=== PATIENT | female | born 1965 | race Caucasian/White ===

== ENCOUNTER 2017-07-08 16:21 | Observation (INO) ==
[2017-07-08] MEDS ORDERED: Ondansetron 4 MG/2 ML VIAL IVP ONE ×2 (16:39→18:06)
[2017-07-08] MEDS ORDERED: Ketorolac 30 MG/ML VIAL IVP ONE (16:39)
[2017-07-08] MEDS ORDERED: 0.9 % Sodium Chloride 1,000 ML IVC ONE (16:39)
[2017-07-08] MEDS ORDERED: Pantoprazole 40 MG VIAL IVP ONE (16:39)
--- NOTE | 2017-07-08 16:45 | Emergency Department Note ---
Disposition Clinical Impression: Nephrolithiasis, Hydroureter, Renal colic, Pyelonephritis Hydronephrosis Qualifiers: Hydronephrosis type: unspecified Qualified Code(s): N13.30 - Unspecified hydronephrosis UTI (urinary tract infection) Qualifiers: Urinary tract infection type: site unspecified Hematuria presence: with hematuria Qualified Code(s): N39.0 - Urinary tract infection, site not specified ; R31.9 - Hematuria, unspecified; R31.9 - Hematuria, unspecified Disposition: Admitted As Inpatient Condition: Good Time of Disposition: 19:50 Abdominal Pain HPI - General Chief Complaint: ED Abdominal Pain Stated Complaint: ABD Pain. Time Seen by Provider: 07/08/17 16:26 Source: patient, family Nursing Notes Reviewed: Yes Vital Signs Reviewed: Yes - History of Present Illness HPI Narrative: Mrs. Reese, a 52yo female, presents from home for evaluation of right flank pain. Onset this morning and awoke her from sleep. Described as sharp, stabbing, constant. She motions to her right subcostal area containing down her right flank. She has associated nausea with vomiting. No fevers or chills. Patient also notes that she has foul-smelling urine. Patient does have a history of kidney stones. Patient also has a history of biliary colic. She is unable to clarify if this feels like a kidney stone or biliary colic. PMH: Hypertension tension, obesity PSH: Partial bowel resection secondary to diverticulitis, hysterectomy, bilateral oophrectomy, surgical removal of renal calculi. She still has her appendix and gallbladder. ROS: Positive: As above Negative: Fever, chills, chest pain, palpitations, dyspnea, diaphoresis, and usual back pain, hematuria, changes in bowel habits Pain Scale: 9 - Related Data Allergies Allergy/AdvReac Type Severity Reaction Status Date / Time No Known Allergies Allergy Verified 07/08/17 19:38 All systems ED: reviewed and negative except as stated. Review of Systems: As Per HPI Abdominal Pain PMH - Past Medical History Medical history: Reports: kidney stones Female Surgical History: Reports: hysterectomy, other Psychiatric history: Reports: no psych history - Social History Smoking status: Never smoker Alcohol use: Reports: rarely Drug use: Reports: none Physical Exam Vital Signs Reviewed General: Patient is alert, oriented, and in acute distress-she is a bucket bedside with scant emesis, grimace on her face, and is holding her right side. She prefers to sit upright. Head: atraumatic, normocephalic Eye: normal appearance, PERRL, EOMI, no scleral icterus, no conjunctival injection ENT: mucous membranes moist, normal external ear exam Neck: normal inspection, trachea midline, full ROM Chest: normal inspection, symmetric chest rise Respiratory: Good respiratory effort. Bilateral breath sounds are clear without wheezing, crackles, or rhonchi. Cardiovastular: Regular rate and rhythm. No clicks, rubs, gallops, or murmors. Normal heart sounds. Abdomen: His period Bowel sounds present normoactive x-4 quadrants. Abdomen is soft, nondistended. Positive Hernandez sign. Tenderness on right flank. No CVA tenderness. No guarding or rebound. Unable to assess organomegaly secondary to patient body habitus. Musculoskeletal: Spontaneously moving all extremities. Skin: warm, dry, intact. Neuro: Alert and oriented x4. Sensation light touch intact. Psych: Patient's affect is appropriate for situation. - General Limitations: no limitations General appearance: alert, in no apparent distress Course Course Narrative: We will attempt to symptomatically manage patient's symptoms most assessing for nephrolithiasis versus cholelithiasis. Appendicitis unlikely based on physical exam in her presentation. We will also assess for UTI. Patient's pain and nausea are well controlled with Toradol and Zofran. CT pelvis shows a mid right ureter stone with mild right hydroureter and hydronephrosis as well as some perinephric stranding. Of clinical concern is patient's general picture: She has leukocytosis with left shift, low-grade fever, urinary infection all in the context of her right kidney stone with signs of obstruction. I discussed the patient with on-call urology, Dr. Montanez. He is agreeable to consult with the patient for continued evaluation and management. Will provide IV Rocephin at this time. Patient is agreeable to admission for continued evaluation and management. I discussed the patient with on-call the admitting hospitalist, Dr. Burgos, who agrees to accept the patient for continued evaluation and management. Abdomen/Pelvis CT 07/08/17 16:40 IMPRESSION: 5 x 5 x 4 mm stone in the mid right ureter with mild right hydroureteronephrosis. D/ / Prem Bowden MD / Prem Bowden MD Interpreting Provider: Prem Bowden MD Vital Signs Temperature 99.1 F 07/08/17 16:21 Pulse Rate 115 07/08/17 16:21 Respiratory Rate 22 07/08/17 16:21 Blood Pressure 173/82 07/08/17 16:21 O2 Sat by Pulse Oximetry 98 07/08/17 16:21 Temperature 99.1 F 07/08/17 16:21 Pulse Rate 115 07/08/17 16:21 Respiratory Rate 22 07/08/17 16:21 Blood Pressure 173/82 07/08/17 16:21 O2 Sat by Pulse Oximetry 98 07/08/17 16:21 Oxygen Delivery Oxygen Delivery Room Air Abdominal Pain - Lab Data Result diagrams: 07/08/17 17:09 07/08/17 17:09 Lab Results 07/08/17 07/08/17 07/08/17 Range/Units 17:09 17:09 18:53 WBC 21.3 H (4.3-11.1) K/mcL RBC 4.51 (3.82-4.97) M/mcL Hgb 12.9 (11.5-15.4) g/dL Hct 38.3 (35.3-44.9) % MCV 84.9 (83.0-100.0) fL MCH 28.6 (28.0-33.3) pg MCHC 33.7 (31.6-35.5) g/dL RDW 13.5 (11.5-14.5) % Plt Count 369 (140-400) K/mcL MPV 9.2 L (9.4-12.4) fL Immature Gran % 0.6 (0-4) % Seg Neutrophils % 91.8 % Lymphocytes % 5.2 % Monocytes % 2.1 % Eosinophils % 0.0 % Basophils % 0.3 % Neutrophils # 19.6 H (1.6-8.9) K/mcL Lymphocytes # 1.1 (0.6-4.6) K/mcL Monocytes # 0.4 (0.0-1.3) K/mcL Eosinophils # 0.0 (0.0-0.6) K/mcL Basophils # 0.1 (0.0-0.2) K/mcL Sodium 135 L (136-145) mEq/L Potassium 3.6 (3.5-5.1) mEq/L Chloride 107 (98-107) mEq/L Carbon Dioxide 19 L (23-29) mEq/L BUN 11 (6-20) mg/dL Creatinine 0.74 (0.60-1.20) mg/dL Est GFR ( Amer) > 60 (> 60) Est GFR (Non-Af Amer) > 60 (> 60) BUN/Creatinine Ratio 15 (6-26) Glucose 138 H (70-105) mg/dL Calculated Osmolality 282 (280-300) Calcium 9.2 (8.6-10.3) mg/dL Total Bilirubin 1.1 H (0.3-1.0) mg/dL Direct Bilirubin 0.2 (0.0-0.2) mg/dL Indirect Bilirubin 0.9 (0.0-1.2) mg/dL AST 14 (13-39) Units/L ALT 10 (7-52) Units/L Alkaline Phosphatase 93 (34-104) Units/L Serum Total Protein 7.0 (6.4-8.9) g/dL Albumin 4.0 (3.5-5.7) g/dL Globulin 3.0 (2.4-3.5) g/dL Albumin/Globulin Ratio 1.3 (1.1-2.2) Lipase 8 L (11-82) Units/L Urine Color Yellow (Yellow) Urine Clarity Cloudy A (Clear) Urine pH 6.0 (5.0-8.0) pH Units Ur Specific [place] 1.026 H (1.010-1.025) Urine Protein 30 H (Neg-Trace) mg/dL Urine Glucose (UA) Normal (Normal) mg/dL Urine Ketones 15 H (Negative) mg/dL Urine Blood Large H (Negative) Urine Nitrite Negative (Negative) Urine Bilirubin Negative (Negative) Urine Urobilinogen Normal (Normal) mg/dL Ur Leukocyte Esterase Moderate H (Negative) Urine Microscopic RBC 30-50 H (0-3) per hpf Urine Microscopic WBC TNTC H (0-3) per hpf Ur Squamous Epith Cells Many H (None-Few) per lpf Urine Bacteria None Seen (None-Few) per hpf Hyaline Casts None Seen (None-Few) per lpf Ur Culture Indicated? NO. (NO) Critical Care Time Critical Care Time: Yes Total Critical Care Time: 35 Attestation: Critical care time 35 minutes to manage the patient's pyelonephritis or obstructing renal stone. Attestation Statement - Attestation Attestation: Patient was seen with resident physician. I reviewed the history, physical, assessment and plan, and agree with the findings. I also personally evaluated this patient and had [id number] time with this patient. 52-year-old female presents to the emergency department with chief complaint of right-sided flank and abdominal pain. Patient is a history of kidney stones. Says this pain is similar but she also has more abdominal pain especially the right upper quadrant. Nausea and vomiting no fevers or chills. Some dysuria with foul- smelling urine. On exam vital signs are stable. ENT is unremarkable. Heart normal. Lungs normal. Abdomen obese tender in the right upper quadrant right flank no guarding or rigidity. Extremities insistent with obesity no asymmetric swelling. Neurologically intact. Psych patient's anxious. Skin no obvious rashes. ED course we will do workup for any stones. We will treat the patient pain with fluids and medication. CT scan revealed an obstructing right renal stone. She also had perinephric stranding which is potentially consistent for Sylv[place]. She had an elevated white blood cell count and she had a urinalysis that was suggestive of infection. With an obstructing stone and pyelonephritis we felt the patient probably required IV antibiotics. We discussed the case with urology confirmed our suspicions. She was started on IV antibiotics we notified the hospitalist service as to the need for admission. They agreed to accept the patient with urology consultation. I agree with the resident physician assessment and plan.
[2017-07-08 17:28] LABS: Basophils # 0.1 K/mcL (0.0-0.2); Basophils % 0.3 %; Hematocrit 38.3 % (35.3-44.9); Hemoglobin 12.9 g/dL (11.5-15.4); Immature Granulocytes % 0.6 % (0-4); Lymphocytes # 1.1 K/mcL (0.6-4.6); Lymphocytes % 5.2 %; Mean Corpuscular HGB Conc 33.7 g/dL (31.6-35.5); Mean Corpuscular Hemoglobin 28.6 pg (28.0-33.3); Mean Corpuscular Volume 84.9 fL (83.0-100.0); Mean Platelet Volume 9.2 fL (9.4-12.4); Monocytes # 0.4 K/mcL (0.0-1.3); Monocytes % 2.1 %; Neutrophils # 19.6 K/mcL (1.6-8.9); Platelet Count 369 K/mcL (140-400); Red Blood Count 4.51 M/mcL (3.82-4.97); Red Cell Distribution Width 13.5 % (11.5-14.5); Segmented Neutrophils % 91.8 %
[2017-07-08 17:50] LABS: Alanine Aminotransferase 10 Units/L (7-52); Albumin/Globulin Ratio 1.3 (1.1-2.2); Alkaline Phosphatase 93 Units/L (34-104); Aspartate Amino Transferase 14 Units/L (13-39); BUN/Creatinine Ratio 15 (6-26); Bilirubin,Direct 0.2 mg/dL (0.0-0.2); Bilirubin,Indirect 0.9 mg/dL (0.0-1.2); Bilirubin,Total 1.1 mg/dL (0.3-1.0); Blood Urea Nitrogen 11 mg/dL (6-20); Calcium 9.2 mg/dL (8.6-10.3); Carbon Dioxide 19 mEq/L (23-29); Chloride 107 mEq/L (98-107); Glucose 138 mg/dL (70-105); Lipase 8 Units/L (11-82); Osmolality,Calculated 282 (280-300); Potassium 3.6 mEq/L (3.5-5.1); Sodium 135 mEq/L (136-145); eGFR For African Americans > 60 (> 60); eGFR For Non-African Americans > 60 (> 60)
[2017-07-08 19:08] LABS: Bilirubin,Urine Negative (Negative); Blood,Urine Large (Negative); Clarity,Urine Cloudy (Clear); Color,Urine Yellow (Yellow); Glucose,Urine (UA) Normal (Normal); Ketones,Urine 15 mg/dL (Negative); Leukocyte Esterase,Urine Moderate (Negative); Nitrite,Urine Negative (Negative); Protein,Urine 30 mg/dL (Neg-Trace); Specific Gravity,Urine 1.026 (1.010-1.025); Urobilinogen,Urine Normal (Normal)
[2017-07-08 19:10] LABS: Bacteria,Urine None Seen per hpf (None-Few); Hyaline Casts,Urine None Seen per lpf (None-Few); RBC,Urine 30-50 per hpf (0-3); Squamous Epithelial Cell,Urine Many per lpf (None-Few); WBC,Urine TNTC per hpf (0-3)
[2017-07-08] MEDS ORDERED: *HR* FentaNYL (PF) 100 MCG/2 ML VIAL IVP ONE (19:27)
--- NOTE | 2017-07-08 20:07 | Urology - Consult Note ---
Date of Encounter: 07/09/17 Time of Encounter: 20:06 - Assessment and Plan (1) Ureteral stone with hydronephrosis Current Visit: Yes Status: Acute Assessment and plan: the patient has a 5 mm mid ureteral stone with concern for infection based on imaging, UA, WBC. need to proceed with ureteral stent placement with staged stone extraction in the future. (2) Leukocytosis Current Visit: Yes Status: Acute Assessment and plan: raises concern for infection and sepsis. Qualifiers: Leukocytosis type: unspecified Qualified Code(s): D72.829 - Elevated white blood cell count, unspecified (3) UTI (urinary tract infection) Current Visit: Yes Status: Acute Assessment and plan: follow cultures and treat. Qualifiers: Urinary tract infection type: site unspecified Hematuria presence: without hematuria Qualified Code(s): N39.0 - Urinary tract infection, site not specified Urology CN:HPI Consult date: 07/08/17 Reason for consult Urology: Hydronephrosis History of present illness: pt previously known to [facility] service. presents to ER with acute flank pain and N/V. 5 mm mid ureteral stone. WBC 21,000 with left shift. Past Med Surg Social Fam HX - Past Medical History Medical history: kidney stones Psychiatric history: no psych history - Social History Smoking Status: Never smoker Smokeless Tobacco Status: No Alcohol use: rarely Drug use: none - Family History Mother History Unknown: Yes Medications and Allergies 3 Allergy/AdvReac Type Severity Reaction Status Date / Time No Known Allergies Allergy Verified 07/08/17 19:38 Review of Systems - Constitutional fatigue, fever(s), malaise - EENT Nose, mouth and throat: dizziness - Cardiovascular no chest pain - Respiratory no cough - Gastrointestinal abdominal pain, nausea, vomiting - Genitourinary Genitourinary: flank pain - Musculoskeletal back pain - Integumentary no erythema - Neurological no confusion - Psychiatric no anxiety - Hematologic/Lymphatic no easy bleeding - Allergic/Immunologic no throat swelling Exam Initial Vital Signs Temp Pulse Resp BP Pulse Ox 99.1 F 115 22 173/82 98 07/08/17 16:21 07/08/17 16:21 07/08/17 16:21 07/08/17 16:21 07/08/17 16:21 - General physical appearance Present: well developed, no distress - Eyes Present: PERRL, conjunctiva is clear - ENT Present: normal nares - Neck Present: no masses, no lymphadenopathy - Respiratory Present: normal respiratory effort - Cardiovascular Cardiovascular exam IM: RRR - Abdomen Abdomen: Present: soft, suprapubic tenderness. Absent: masses - Neurologic Present: normal coordination. Absent: disoriented, confused Urology Results - Labs 07/09/17 05:43 07/09/17 05:43 Abnormal lab results WBC 21.3 K/mcL (4.3-11.1) H 07/08/17 17:09 MPV 9.2 fL (9.4-12.4) L 07/08/17 17:09 Neutrophils # 19.6 K/mcL (1.6-8.9) H 07/08/17 17:09 Sodium 135 mEq/L (136-145) L 07/08/17 17:09 Carbon Dioxide 19 mEq/L (23-29) L 07/08/17 17:09 Glucose 138 mg/dL (70-105) H 07/08/17 17:09 Total Bilirubin 1.1 mg/dL (0.3-1.0) H 07/08/17 17:09 Lipase 8 Units/L (11-82) L 07/08/17 17:09 Urine Clarity Cloudy (Clear) A 07/08/17 18:53 Ur Specific [place] 1.026 (1.010-1.025) H 07/08/17 18:53 Urine Protein 30 mg/dL (Neg-Trace) H 07/08/17 18:53 Urine Ketones 15 mg/dL (Negative) H 07/08/17 18:53 Urine Blood Large (Negative) H 07/08/17 18:53 Ur Leukocyte Esterase Moderate (Negative) H 07/08/17 18:53 Urine Microscopic RBC 30-50 per hpf (0-3) H 07/08/17 18:53 Urine Microscopic WBC TNTC per hpf (0-3) H 07/08/17 18:53 Ur Squamous Epith Cells Many per lpf (None-Few) H 07/08/17 18:53 All other labs normal. Consult Discharge Plan - Plan Referrals: Xander Thomas DO [Primary Care Provider] -
[2017-07-08] MEDS ORDERED: cefTRIAXone 1,000 MG in Water for inj. (sterile) 20 ML 10 ML IVPB ONE ×2 (21:00→23:00)
[2017-07-08] MEDS ORDERED: Naloxone 0.4 MG/ML INJ IVP PRN (21:24)
[2017-07-08] MEDS ORDERED: *HR* HYDROcodone/Acet 5/325 mg TABLET PO PRN (21:32)
[2017-07-08] MEDS: 0.9 % Sodium Chloride 1,000 ML IVC SCH (22:16)
--- NOTE | 2017-07-08 23:09 | Internal Med History&Physical ---
Date of Encounter: 07/08/17 Time of Encounter: 20:00 Assessment and Plan (1) DVT prophylaxis Current visit: Yes Status: Acute EPCD, start AC after procedure (2) Hydroureter Current visit: Yes Status: Acute Due to stone. Urology consult will place stent for pt. Pain meds and IVF now. (3) Ureteral stone with hydronephrosis Current visit: Yes Status: Acute Management as above (4) UTI (urinary tract infection) Current visit: Yes Status: Acute Pt has right ureter obstruction. UA shows UTI. Pt has leukocytosis. Consider right pyelonephritis - Cont rocephin iv, will receive 2000mg today followed by 1000mg daily from tomorrow. F/U urine cx - IVF - Urology to place stent to solve obstruction. Qualifiers: Urinary tract infection type: acute pyelonephritis Qualified Code(s): N10 - Acute pyelonephritis Internal Medicine - H&P: HPI Chief complaint: Right flank pain Admitted From: Home Plans for Post Hospital Care: Home History of present illness: Ms. Reese is a 52 year old female with hx of right kidney stone s/o stone extraction, hx of diverticulitis s/p surgery, present to ER for right flank pain since this morning. Pain is sharp, 9/10, rediated to grion area. Pt has low grade fever. Nausea and vomited once, vomiting is whitish fluid. Pt denies dysuria but has increased urgency and frenquency for urination. In ER, CT abd shows right ureter stone with hydroureteronephrosis. UA shows UTI. Urology consult was called by ER. Past Med Surg Social Fam HX - Past Medical History Medical history: kidney stones Psychiatric history: no psych history - Past Surgical History Surgical History: - Social History Smoking Status: Never smoker Smokeless Tobacco Status: No Alcohol use: rarely Drug use: none - Family History Mother History Unknown: Yes Internal Medicine - H&P: Meds 3 Allergy/AdvReac Type Severity Reaction Status Date / Time No Known Allergies Allergy Verified 07/08/17 19:38 All Systems PM: A 10-system review of systems was performed and is negative for pertinent findings except as documented above in the HPI. - Constitutional Vitals: Temp Pulse Resp BP Pulse Ox 98.9 F 83 14 120/75 95 07/08/17 20:39 07/08/17 20:39 07/08/17 20:39 07/08/17 20:39 07/08/17 20:39 General appearance: Present: mild distress, A&O X 3, morbidly obese, answers questions appropriately - Head Head exam: Present: atraumatic, normocephalic - Eye Eye exam: Present: PERRL, conjuntiva pink, sclera anicteric Pupils: Present: PERRL - Neck Neck exam general surgery: Present: supple, trachea midline. Absent: lymphadenopathy - Respiratory Respiratory exam: Present: CTAB. Absent: accessory muscle use, rales, rhonchi, wheezes - Cardiovascular Cardiovascular exam: Present: RRR, +S1, +S2. Absent: diastolic murmur, gallop, rubs, systolic murmur - GI/Abdominal GI/Abdominal exam: Present: normal bowel sounds, soft, no peritoneal signs. Absent: distended, tenderness Additional comments: CVAT positive on right side - Extremities Exam Extremities exam: Present: warm, radial pulses palpable and symmetrical. Absent : calf tenderness, cyanotic, pedal edema - Neurological Exam Neurological exam: Present: CN II-XII intact, oriented X3, no focal deficits. Absent: pronater drift, facial droop, speech deficit - Skin Skin exam: Present: dry, intact Internal Med - H&P Results - Labs CBC & Chem 7: 07/08/17 17:09 07/08/17 17:09
[2017-07-09] MEDS ORDERED: Ondansetron 4 MG/2 ML VIAL IVP PRN ×2 (04:10→15:32)
[2017-07-09] MEDS: Ketorolac 15 MG/ML VIAL IVP PRN ×2 (04:11→11:44)
[2017-07-09 06:16] LABS: Basophils # 0.1 K/mcL (0.0-0.2); Basophils % 0.4 %; Eosinophils % 0.1 %; Hematocrit 34.3 % (35.3-44.9); Immature Granulocytes % 0.4 % (0-4); Lymphocytes # 1.7 K/mcL (0.6-4.6); Lymphocytes % 9.9 %; Mean Corpuscular HGB Conc 31.8 g/dL (31.6-35.5); Mean Corpuscular Hemoglobin 28.4 pg (28.0-33.3); Mean Corpuscular Volume 89.3 fL (83.0-100.0); Mean Platelet Volume 9.3 fL (9.4-12.4); Monocytes # 0.9 K/mcL (0.0-1.3); Monocytes % 5.1 %; Neutrophils # 14.4 K/mcL (1.6-8.9); Platelet Count 322 K/mcL (140-400); Red Blood Count 3.84 M/mcL (3.82-4.97); Red Cell Distribution Width 13.8 % (11.5-14.5); Segmented Neutrophils % 84.1 %
[2017-07-09 06:18] LABS: Hemoglobin 10.9 g/dL (11.5-15.4)
[2017-07-09 06:23] LABS: INR 1.1; Prothrombin Time 12.2 Seconds (9.4-12.1)
[2017-07-09] MEDS: 0.9 % Sodium Chloride 1,000 ML IVC SCH ×3 (06:50→21:32)
[2017-07-09 06:57] LABS: BUN/Creatinine Ratio 12 (6-26); Blood Urea Nitrogen 11 mg/dL (6-20); Calcium 8.3 mg/dL (8.6-10.3); Carbon Dioxide 24 mEq/L (23-29); Chloride 110 mEq/L (98-107); Glucose 116 mg/dL (70-105); Osmolality,Calculated 290 (280-300); Potassium 3.5 mEq/L (3.5-5.1); Sodium 140 mEq/L (136-145); eGFR For African Americans > 60 (> 60); eGFR For Non-African Americans > 60 (> 60)
[2017-07-09] MEDS ORDERED: *HR* Promethazine 25 MG/ML VIAL IVP PRN ×3 (08:08→15:32)
[2017-07-09] MEDS ORDERED: *HR* Meperidine 25 MG/ML SYRINGE IVP PRN (08:08)
[2017-07-09] MEDS ORDERED: Ketorolac 30 MG/ML VIAL IM PRN ×2 (08:28→15:32)
--- NOTE | 2017-07-09 08:28 | Internal Med Progress Note ---
<Gudelia Abbott - Last Filed: 07/09/17 08:25> Date of Encounter: 07/09/17 Time of Encounter: 08:25 - Assessment and plan (1) Ureteral stone with hydronephrosis Current Visit: Yes Status: Acute Assessment and plan: [id number] Right ureteral stone with Hydroureteronephrosis demonstrated on Abd CT WBC 17.1 afebrile Plan urology consultation following patient, will place ureteral stent today. Patient will later return for stone extraction. Toradol, norco, nubain for pain management (2) Hydroureter Current Visit: Yes Status: Acute Assessment and plan: [id number] Right ureteral stone with Hydroureteronephrosis demonstrated on Abd CT see plan above (3) UTI (urinary tract infection) Current Visit: Yes Status: Acute Assessment and plan: Asymptomatic UTI most likely secondary to right ureteral stone urinalysis: + leukocyte esterase, nitrite negative, +blood patient reported hematuria, denied dysuria WBC 17.1 afebrile plan Continue Rocephin day 2 urine culture pending Qualifiers: Urinary tract infection type: site unspecified Hematuria presence: without hematuria Qualified Code(s): N39.0 - Urinary tract infection, site not specified (4) DVT prophylaxis Current Visit: Yes Status: Acute Assessment and plan: EPCD now but AC after stent placement - Subjective Interval history: She is alert and oriented x3 and sitting up on side on of bed. She said the pain is controlled but she is having nausea. She reports that she has seen Dr. Montanez who will place a stent today and will then have her come back in for stone extraction. - Constitutional Vitals: Temp Pulse Resp BP Pulse Ox 97.3 F L 97 17 156/100 100 07/09/17 07:16 07/09/17 07:16 07/09/17 07:16 07/09/17 07:16 07/09/17 07:16 General appearance: Present: mild distress, A&O X 3, morbidly obese, answers questions appropriately Exam: Gen.: Vitals noted. No acute distress. AAOx3 HEENT: oropharynx clear, Normocephalic, atraumatic Cardiac: RRR, no murmur, +S1/S2 Pulmonary: CTA bilaterally, no wheezes, rales or rhonchi, equal chest expansion Abdomen: soft, RLQ tender, Bowel sounds noted, no guarding Back: right CVA tender MSK: ROM intact, no joint swelling noted Neuro: A&Ox3, moves all extremities, no focal deficits Psych: Appropriate mood and behavior Internal Medicine: Result - Labs CBC & Chem 7: 07/09/17 05:43 07/09/17 05:43 Labs: Short CBC 07/09/17 Range/Units 05:43 WBC 17.1 H (4.3-11.1) K/mcL Hgb 10.9 L D (11.5-15.4) g/dL Hct 34.3 L (35.3-44.9) % Plt Count 322 (140-400) K/mcL Neutrophils # 14.4 H (1.6-8.9) K/mcL BMP 07/09/17 05:43 Sodium 140 Potassium 3.5 Chloride 110 H Carbon Dioxide 24 BUN 11 Creatinine 0.94 Glucose 116 H Calcium 8.3 L - ABG Interpretation ABG results: PT/INR, D-dimer PT 12.2 Seconds (9.4-12.1) H 07/09/17 05:43 Consult Discharge Plan - Plan Referrals: Xander Thomas DO [Primary Care Provider] - <Elia Brice H - Last Filed: 07/09/17 13:59> Date of Encounter: 07/09/17 - Constitutional Vitals: Temp Pulse Resp BP Pulse Ox 99.2 F 108 18 122/73 96 07/09/17 11:17 07/09/17 11:17 07/09/17 11:17 07/09/17 11:17 07/09/17 11:17 Internal Medicine: Result - Labs CBC & Chem 7: 07/09/17 05:43 07/09/17 05:43 Labs: Short CBC 07/09/17 Range/Units 05:43 WBC 17.1 H (4.3-11.1) K/mcL Hgb 10.9 L D (11.5-15.4) g/dL Hct 34.3 L (35.3-44.9) % Plt Count 322 (140-400) K/mcL Neutrophils # 14.4 H (1.6-8.9) K/mcL BMP 07/09/17 05:43 Sodium 140 Potassium 3.5 Chloride 110 H Carbon Dioxide 24 BUN 11 Creatinine 0.94 Glucose 116 H Calcium 8.3 L - ABG Interpretation ABG results: PT/INR, D-dimer PT 12.2 Seconds (9.4-12.1) H 07/09/17 05:43 - Attending Attestation Sepsis secondary to UTI, possibly associated with the right obstructive ureteral stone Urology consulted Continue IV fluids and Rocephin Urine culture ordered I examined this patient and my medical decision-making was reviewed with the Resident Physician. I agree with the documented findings, disposition and treatment plan as described except to the extent set forth below.
[2017-07-09] MEDS ORDERED: *HR* Nalbuphine 20 MG/ML AMPUL IVP SCH ×2 (08:45→12:00)
[2017-07-09] MEDS ORDERED: cefTRIAXone 1,000 MG in Water for inj. (sterile) 10 ML IVP SCH (09:00)
[2017-07-09] MEDS ORDERED: *HR* FentaNYL (PF) 100 MCG/2 ML VIAL IVP ONE (09:05)
[2017-07-09] MEDS ORDERED: 0.9 % Sodium Chloride 1,000 ML IVC SCH ×2 (12:30→14:04)
[2017-07-09] MEDS ORDERED: *HR* Midazolam HCl 2 MG/2 ML VIAL ONE (13:59)
[2017-07-09] MEDS ORDERED: *HR* Propofol 200 MG/20 ML VIAL IVP ONE (13:59)
[2017-07-09] MEDS ORDERED: Lidocaine -MPF 2% 2 ML VIAL ONE (13:59)
[2017-07-09] MEDS ORDERED: *HR* FentaNYL (PF) 100 MCG/2 ML VIAL ONE (13:59)
[2017-07-09] MEDS ORDERED: *HR* OxyCODONE Immed Rel 5 MG TABLET PO PRN (14:02)
[2017-07-09] MEDS ORDERED: MORPHINE SUL Oral CONC 10 MG/0.5 ML ORAL.SYG SL PRN (14:02)
[2017-07-09] MEDS ORDERED: Acetaminophen IV 1,000 MG/100 ML INFUS..BTL ONE (14:11)
--- NOTE | 2017-07-09 14:11 | Anesthesia Evaluation PreOp ---
Date of Encounter: 07/09/17 Time of Encounter: 14:10 - Past History Planned Operation: Cystoscopy Rt Ureteral Stent Cardiac History: Denies any Significant Hx Pulmonary History: Denies Any Significant HX CLINIC MANAGER History: Denies Any Significant HX Other Medical History: Denies Any Significant HX, Other (Obese) Anesthesia History: No Prior Anesthetic Complications : No Alcohol Use: rarely Drug use: none Medications and Allergies No Known Home Drugs 07/09/17 [History] 3 Allergy/AdvReac Type Severity Reaction Status Date / Time No Known Allergies Allergy Verified 07/08/17 19:38 - Meds/Allergy Pre-op Review Medications Reviewed: Yes Allergies Reviewed: Yes Beta Blockers on Current Med List: No Anesthesia Results - Labs 07/09/17 05:43 07/09/17 05:43 Anesthesia Exam O2 Sat Height 1.65 m Height 1.65 m Weight 109.6 kg Weight 109.6 kg Weight 108.862 kg O2 Sat by Pulse Oximetry 96 O2 Sat by Pulse Oximetry 96 O2 Sat by Pulse Oximetry 100 O2 Sat by Pulse Oximetry 95 O2 Sat by Pulse Oximetry 93 O2 Sat by Pulse Oximetry 95 O2 Sat by Pulse Oximetry 97 O2 Sat by Pulse Oximetry 98 Vital Signs Temp Pulse Resp BP Pulse Ox 99.1 F 115 22 173/82 98 07/08/17 16:21 07/08/17 16:21 07/08/17 16:21 07/08/17 16:21 07/08/17 16:21 Height: 5'5 Weight: 240 lbs NPO (# of Hours): MN Pain Scale: 0 - HEENT Pupil (Motor): Pupils equal, EOMI Mallampati: II Teeth: Normal Oral Opening: Greater than 3 - CLINIC MANAGER LOC: Oriented CLINIC MANAGER Motor: Normal RUE, Normal LUE, Normal RLE, Normal LLE, Normal Face CLINIC MANAGER Sensory: Normal: RUE, LUE, RLE, LLE, Face - Cardiac Rhythm: Regular Murmur: None JVD: No Carotid Bruit: No - Pulmonary Breath Sounds: bilateral Clear Respiratory Effort: Symmetrical Anesthesia Assess/Plan ASA Score: 2 Anesthetic Plan: General Monitoring Plan: Standard Monitors Recovery Plan: PACU (Discussed GA, agrees to proceed)
[2017-07-09] MEDS ORDERED: Dexamethasone 4 MG/ML VIAL ONE (14:33)
[2017-07-09] MEDS ORDERED: Ondansetron 4 MG/2 ML VIAL ONE (14:33)
[2017-07-09] MEDS ORDERED: Ketorolac 30 MG/ML VIAL ONE (14:42)
--- NOTE | 2017-07-09 14:48 | Operative Note ---
Date of procedure: 07/09/17 Pre-op diagnosis: right hydronephrosis secondary to proximal ureteral stone Post-op diagnosis: same Procedure: Cystoscopy and right 4.8 x 26 cm ureteral stent placement Anesthesia: GETA Surgeon: Naveen Nielson Was there an registered nurse first assistant present: No Estimated blood loss (cc): 0 Specimen: none Condition: stable Disposition: PACU Procedure in Detail: Patient was prepped and draped in normal sterile fashion. Timeout procedure performed. I inserted the cystoscope into the patient's bladder. Right ureteral orifice was cannulated using a Glidewire. I then placed a 4.8 x 26 cm ureteral stent with good curl seen in the right kidney and in the bladder. A mild amount of pus was seen coming from the end of the stent at the end of the procedure. Bladder was drained procedure was ended.
[2017-07-09] MEDS ORDERED: Naloxone 0.4 MG/ML INJ IVP PRN (15:32)
[2017-07-09] MEDS ORDERED: *HR* HYDROcodone/Acet 5/325 mg TABLET PO PRN (15:32)
[2017-07-09] MEDS ORDERED: Ketorolac 15 MG/ML VIAL IVP PRN (15:32)
--- NOTE | 2017-07-09 15:33 | Anesthesia Evaluation Post Op ---
Date of Encounter: 07/09/17 Time of Encounter: 15:33 - Vital Signs Vital Signs: Last Vital Signs Temp 98.8 F 07/09/17 15:29 Pulse 98 07/09/17 15:29 Resp 20 07/09/17 15:29 BP 104/56 07/09/17 15:29 Pulse Ox 96 07/09/17 15:29 - Lungs Lungs: Clear Ascult./Percussion - Airway Airway: Non-obstructed - Cardiovascular Regular Rate - Mental Status Mental Status: Alert & Oriented, Answers Appropriately - Pain Pain Scale: 3 - Nausea Vomiting Nausea Vomiting: Not Present - Hydration Hydration: NPO - Discharge PostOp Status: Transfer Patient to floor
[2017-07-10] MEDS: 0.9 % Sodium Chloride 1,000 ML IVC SCH ×2 (03:29→09:05)
[2017-07-10 07:14] LABS: Basophils % 0.1 %; Hematocrit 34.6 % (35.3-44.9); Hemoglobin 10.7 g/dL (11.5-15.4); Immature Granulocytes % 0.9 % (0-4); Lymphocytes # 2.1 K/mcL (0.6-4.6); Lymphocytes % 9.2 %; Mean Corpuscular HGB Conc 30.9 g/dL (31.6-35.5); Mean Corpuscular Hemoglobin 28.2 pg (28.0-33.3); Mean Corpuscular Volume 91.3 fL (83.0-100.0); Monocytes # 0.9 K/mcL (0.0-1.3); Monocytes % 3.8 %; Neutrophils # 19.6 K/mcL (1.6-8.9); Platelet Count 294 K/mcL (140-400); Red Blood Count 3.79 M/mcL (3.82-4.97); Red Cell Distribution Width 14.2 % (11.5-14.5)
[2017-07-10] MEDS: cefTRIAXone 1,000 MG in Water for inj. (sterile) 10 ML IVP SCH (07:27)
--- NOTE | 2017-07-10 08:44 | Internal Med Progress Note ---
<Gudelia Abbott - Last Filed: 07/10/17 12:45> Date of Encounter: 07/10/17 Time of Encounter: 08:40 - Assessment and plan (1) Ureteral stone with hydronephrosis Current Visit: Yes Status: Acute Assessment and plan: [id number] Right ureteral stone with Hydroureteronephrosis demonstrated on Abd CT WBC increased to 22.8 (yesterday 17.1) most likely due to manipulation of stent afebrile s/p ureteral stent placement Plan urology consultation following patient, Patient will later return for stone extraction. Toradol, norco for pain management rocephin day 3 D/C tomorrow (2) Hydroureter Current Visit: Yes Status: Acute Assessment and plan: [id number] Right ureteral stone with Hydroureteronephrosis demonstrated on Abd CT see plan above (3) UTI (urinary tract infection) Current Visit: Yes Status: Acute Assessment and plan: Asymptomatic UTI most likely secondary to right ureteral stone urinalysis: + leukocyte esterase, nitrite negative, +blood patient reported hematuria, denied dysuria WBC increased 22.8 (yesterday 17.1) may be due to manipulation of stent afebrile plan Continue Rocephin day 3 urine culture pending Qualifiers: Urinary tract infection type: site unspecified Hematuria presence: without hematuria Qualified Code(s): N39.0 - Urinary tract infection, site not specified (4) GERD (gastroesophageal reflux disease) Current Visit: Yes Status: Acute Assessment and plan: histroy of GERD taking ranitadine in past start omeprazole Qualifiers: Esophagitis presence: esophagitis presence not specified Qualified Code(s) : K21.9 - Gastro-esophageal reflux disease without esophagitis (5) DVT prophylaxis Current Visit: Yes Status: Acute Assessment and plan: heparin sq - Subjective Interval history: She is alert and oriented x3 and sitting up eating breakfast. Her is at bedside. She reports that she feels much better and the campaign has improved from yesterday however she still feels very weak and chills. She reports some nausea and would like zofran. She denied chest pain, shortness of breath, bowel movement. She has passed urine however her nurse reports that is still dark. - Constitutional Vitals: Temp Pulse Resp BP Pulse Ox 98.7 F 88 16 133/80 94 07/10/17 07:34 07/10/17 07:34 07/10/17 07:34 07/10/17 07:34 07/10/17 07:45 General appearance: Present: mild distress, A&O X 3, morbidly obese, answers questions appropriately Exam: Gen.: Vitals noted. No acute distress. AAOx3 HEENT: PERRL oropharynx clear, Normocephalic, atraumatic Neck: Supple. No adenopathy. Cardiac: RRR, no murmur, +S1/S2 Pulmonary: CTA bilaterally, no wheezes, rales or rhonchi, equal chest expansion Abdomen: soft, nontender, Bowel sounds noted, no guarding Back: Nontender throughout. Extremities: +BLE edema, nontender calf, no cyanosis or clubbing Neuro: A&Ox3, moves all extremities, no focal deficits Psych: Appropriate mood and behavior Internal Medicine: Result - Labs CBC & Chem 7: 07/10/17 06:20 07/09/17 05:43 Labs: Short CBC 07/10/17 Range/Units 06:20 WBC 22.8 H (4.3-11.1) K/mcL Hgb 10.7 L (11.5-15.4) g/dL Hct 34.6 L (35.3-44.9) % Plt Count 294 (140-400) K/mcL Neutrophils # 19.6 H (1.6-8.9) K/mcL - ABG Interpretation ABG results: PT/INR, D-dimer PT 12.2 Seconds (9.4-12.1) H 07/09/17 05:43 - Impressions Impressions Fluoroscopy 07/09/17 00:00 IMPRESSION: Intraprocedural fluoroscopic spot images as above. See separate procedure report for more information. D/ / Dipesh Hunt MD / Dipesh Hunt MD Interpreting Provider: Dipesh Hunt MD X-Ray 07/09/17 00:00 IMPRESSION: Intraprocedural fluoroscopic spot images as above. See separate procedure report for more information. D/ / Dipesh Hunt MD / Dipesh Hunt MD Interpreting Provider: Dipesh Hunt MD - VTE Documentation of Mechanical Device: Intermittent pneumatic compression device Consult Discharge Plan - Plan Referrals: Xander Thomas DO [Primary Care Provider] - <Kash Clarke - Last Filed: 07/10/17 14:28> Date of Encounter: 07/10/17 - Constitutional Vitals: Temp Pulse Resp BP Pulse Ox 98.7 F 84 16 135/84 96 07/10/17 14:10 07/10/17 14:10 07/10/17 14:10 07/10/17 14:10 07/10/17 14:10 Internal Medicine: Result - Labs CBC & Chem 7: 07/10/17 06:20 07/09/17 05:43 Labs: Short CBC 07/10/17 Range/Units 06:20 WBC 22.8 H (4.3-11.1) K/mcL Hgb 10.7 L (11.5-15.4) g/dL Hct 34.6 L (35.3-44.9) % Plt Count 294 (140-400) K/mcL Neutrophils # 19.6 H (1.6-8.9) K/mcL - ABG Interpretation ABG results: PT/INR, D-dimer PT 12.2 Seconds (9.4-12.1) H 07/09/17 05:43 - Impressions Impressions Fluoroscopy 07/09/17 00:00 IMPRESSION: Intraprocedural fluoroscopic spot images as above. See separate procedure report for more information. D/ / Dipesh Hunt MD / Dipesh Hunt MD Interpreting Provider: Dipesh Hunt MD X-Ray 07/09/17 00:00 IMPRESSION: Intraprocedural fluoroscopic spot images as above. See separate procedure report for more information. D/ / Dipesh Hunt MD / Dipesh Hunt MD Interpreting Provider: Dipesh Hunt MD - Attending Attestation I examined this patient and my medical decision-making was reviewed with the Resident Physician. I agree with the documented findings, disposition and treatment plan as described except to the extent set forth below. Seen and evaluated at the bedside. 52-year-old female being managed for sepsis secondary to complicated UTI with obstructive uropathy and mild hydronephrosis. She is postop day 1. No new complaints. CVA tenderness has improved. Other physical exam was unremarkable. Continue antibiotics, await final sensitivities, add PPI and medication for constipation. Rest of details as in the resident physicians documentation.
[2017-07-10] MEDS ORDERED: Famotidine 20 MG TABLET PO SCH (09:00)
--- NOTE | 2017-07-10 10:18 | Urology Progress Note ---
Date of Encounter: 07/10/17 Time of Encounter: 10:16 - Assessment and Plan (1) Ureteral stone with hydronephrosis Current Visit: Yes Status: Acute Assessment and plan: s/p stent. will plan outpatient stone extraction. (2) Leukocytosis Current Visit: Yes Status: Acute Assessment and plan: WBC increased. could be reaction to manipulation from stent placement. no need for further imaging. continue ABX and followup cultures. Qualifiers: Leukocytosis type: unspecified Qualified Code(s): D72.829 - Elevated white blood cell count, unspecified (3) UTI (urinary tract infection) Current Visit: Yes Status: Acute Qualifiers: Urinary tract infection type: site unspecified Hematuria presence: without hematuria Qualified Code(s): N39.0 - Urinary tract infection, site not specified Progress Note Subjective: feels better Narrative: expected stent discomfort but overall "feels better" Objective Initial Vital Signs Temp Pulse Resp BP Pulse Ox 99.1 F 115 22 173/82 98 07/08/17 16:21 07/08/17 16:21 07/08/17 16:21 07/08/17 16:21 07/08/17 16:21 - General physical appearance Present: no distress, no pain - Labs 07/10/17 06:20 07/09/17 05:43 - VTE Documentation of Mechanical Device: Intermittent pneumatic compression device Consult Discharge Plan - Plan Referrals: Xander Thomas DO [Primary Care Provider] -
[2017-07-10] MEDS ORDERED: *HR* HYDROcodone/Acet 5/325 mg TABLET PO PRN (14:07)
[2017-07-10] MEDS ORDERED: Ketorolac 15 MG/ML VIAL IVP PRN (14:08)
[2017-07-10] MEDS ORDERED: Ketorolac 30 MG/ML VIAL IM PRN (14:09)
[2017-07-10] MEDS ORDERED: Sennosides/Docusate Sodium TABLET PO SCH (15:45)
[2017-07-10] MEDS: *HR* Heparin 5,000 UNIT/ML VIAL SQ SCH (17:50)
[2017-07-11 06:03] LABS: Basophils # 0.1 K/mcL (0.0-0.2); Basophils % 0.4 %; Eosinophils # 0.1 K/mcL (0.0-0.6); Eosinophils % 0.8 %; Hematocrit 33.9 % (35.3-44.9); Hemoglobin 10.5 g/dL (11.5-15.4); Immature Granulocytes % 0.6 % (0-4); Lymphocytes # 3.5 K/mcL (0.6-4.6); Lymphocytes % 29.7 %; Mean Corpuscular Volume 90.4 fL (83.0-100.0); Mean Platelet Volume 9.7 fL (9.4-12.4); Monocytes # 0.6 K/mcL (0.0-1.3); Monocytes % 4.9 %; Neutrophils # 7.6 K/mcL (1.6-8.9); Platelet Count 283 K/mcL (140-400); Red Blood Count 3.75 M/mcL (3.82-4.97); Red Cell Distribution Width 14.1 % (11.5-14.5); Segmented Neutrophils % 63.6 %
[2017-07-11] MEDS: *HR* Heparin 5,000 UNIT/ML VIAL SQ SCH (06:06)
[2017-07-11 06:32] LABS: BUN/Creatinine Ratio 21 (6-26); Blood Urea Nitrogen 16 mg/dL (6-20); Calcium 8.5 mg/dL (8.6-10.3); Carbon Dioxide 23 mEq/L (23-29); Chloride 112 mEq/L (98-107); Glucose 94 mg/dL (70-105); Osmolality,Calculated 291 (280-300); Potassium 3.5 mEq/L (3.5-5.1); Sodium 140 mEq/L (136-145); eGFR For African Americans > 60 (> 60); eGFR For Non-African Americans > 60 (> 60)
[2017-07-11 06:59] VITALS: BP 145/87
--- NOTE | 2017-07-11 07:33 | Urology Progress Note ---
Date of Encounter: 07/11/17 Time of Encounter: 07:32 - Assessment and Plan (1) Ureteral stone with hydronephrosis Current Visit: Yes Status: Acute Assessment and plan: WBC is down. ok with discharge. will call patient to schedule stone extraction (2) Leukocytosis Current Visit: Yes Status: Acute Qualifiers: Leukocytosis type: unspecified Qualified Code(s): D72.829 - Elevated white blood cell count, unspecified (3) UTI (urinary tract infection) Current Visit: Yes Status: Acute Qualifiers: Urinary tract infection type: site unspecified Hematuria presence: without hematuria Qualified Code(s): N39.0 - Urinary tract infection, site not specified Progress Note Subjective: feels better Objective Initial Vital Signs Temp Pulse Resp BP Pulse Ox 99.1 F 115 22 173/82 98 07/08/17 16:21 07/08/17 16:21 07/08/17 16:21 07/08/17 16:21 07/08/17 16:21 - General physical appearance Present: no distress - Labs 07/11/17 05:36 07/11/17 05:36 Diabetes panel 07/11/17 Range/Units 05:36 Sodium 140 (136-145) mEq/L Potassium 3.5 (3.5-5.1) mEq/L Chloride 112 H (98-107) mEq/L Carbon Dioxide 23 (23-29) mEq/L BUN 16 (6-20) mg/dL Creatinine 0.78 (0.60-1.20) mg/dL Glucose 94 (70-105) mg/dL Calcium 8.5 L (8.6-10.3) mg/dL Calcium panel 07/11/17 Range/Units 05:36 Calcium 8.5 L (8.6-10.3) mg/dL Pituitary panel 07/11/17 Range/Units 05:36 Sodium 140 (136-145) mEq/L Potassium 3.5 (3.5-5.1) mEq/L Chloride 112 H (98-107) mEq/L Carbon Dioxide 23 (23-29) mEq/L BUN 16 (6-20) mg/dL Creatinine 0.78 (0.60-1.20) mg/dL Glucose 94 (70-105) mg/dL Calcium 8.5 L (8.6-10.3) mg/dL Adrenal panel 07/11/17 Range/Units 05:36 Sodium 140 (136-145) mEq/L Potassium 3.5 (3.5-5.1) mEq/L Chloride 112 H (98-107) mEq/L Carbon Dioxide 23 (23-29) mEq/L BUN 16 (6-20) mg/dL Creatinine 0.78 (0.60-1.20) mg/dL Glucose 94 (70-105) mg/dL Calcium 8.5 L (8.6-10.3) mg/dL - VTE Documentation of Mechanical Device: Intermittent pneumatic compression device Consult Discharge Plan - Plan Referrals: Xander Thomas DO [Primary Care Provider] -
--- NOTE | 2017-07-11 08:43 | Discharge Summary ---
<Gudelia Abbott - Last Filed: 07/11/17 08:39> Date of Encounter: 07/11/17 Time of Encounter: 08:30 - Discharge Diagnosis (1) Ureteral stone with hydronephrosis Priority: Primary Status: Acute (2) Hydroureter Priority: Secondary Status: Acute (3) UTI (urinary tract infection) Priority: Secondary Status: Acute Qualifiers: Urinary tract infection type: site unspecified Hematuria presence: without hematuria Qualified Code(s): N39.0 - Urinary tract infection, site not specified (4) GERD (gastroesophageal reflux disease) Priority: Secondary Status: Acute Qualifiers: Esophagitis presence: esophagitis presence not specified Qualified Code(s) : K21.9 - Gastro-esophageal reflux disease without esophagitis (5) DVT prophylaxis Priority: Secondary Status: Acute - Discharge Medications Prescriptions: Ondansetron HCl [Zofran] 4 mg PO Q8HR #12 tablet Cefdinir [Omnicef] 300 mg PO BID #12 capsule Omeprazole [PriLOSEC] 20 mg PO BIDAC #60 capsule. [place] Medications: Cefdinir [Omnicef] 300 mg PO BID #12 capsule 07/11/17 [Rx] Omeprazole [PriLOSEC] 20 mg PO BIDAC #60 capsule. 07/11/17 [Rx] Ondansetron HCl [Zofran] 4 mg PO Q8HR #12 tablet 07/11/17 [Rx] Allergies/Adverse Reactions: 3 Allergy/AdvReac Type Severity Reaction Status Date / Time No Known Allergies Allergy Verified 07/08/17 19:38 Date of admission: 07/08/17 19:47 Primary care physician: Xander Thomas, Discharging clinician: Kash Clarke Anticipated date of discharge: 07/11/17 - Patient Status Disposition: Home, Self-Care Condition: Good Functional capacity at discharge: independent ambulation Overall status at discharge: patient is back to baseline - Discharge Instructions Instructions: Kidney Stones (DC), Ureteroscopy (DC), Urinary Tract Infection in Women (DC) Follow Up With: Xander Thomas DO [Primary Care Provider] - Marco Antonio Montanez MD [Partnered Physician] - 07/11/17 9:52 am (WEB REQUEST SENT ) Forms: Work/School Release Additional Instructions: Finish antibiotic to completion use Zofran as needed for nausea follow-up at scheduled appointment for stone extraction with Dr. Montanez return to hospital should you develop fever, chills, burning with urination, increased back pain - Diet and Activity Activity: resume usual activities as tolerated Diet: advance to your usual diet Hospital course: Ms. Reese is a 52 year old female with hx of right kidney stone s/o stone extraction, hx of diverticulitis s/p surgery, present to ER for right flank pain since this morning. Pain is sharp, 9/10, rediated to grion area. Pt has low grade fever. Nausea and vomited once, vomiting is whitish fluid. Pt denies dysuria but has increased urgency and frenquency for urination. In ER, CT abd shows right ureter stone with hydroureteronephrosis. UA shows UTI. Urology consult was called by ER. The patient was then started on Rocephin and urinalysis was taken. Urology the next day placed a stent in her right ureter. Visit scheduled an appointment to have her come back for stone extraction. Her white blood cell continue to improve and normalize. She was afebrile, urine insensitivity returned. Upon discharge chest pain, shortness of breath, back pain, burning with urination, fever, chills. In her states she had reflux and was started on omeprazole. She has given antibiotic to continue outpatient. She was told to follow-up with urology outpatient at her scheduled appointment. She was told to return to the hospital should she develop fever, chills, worsening back pain, dysuria. She is alongside her . She is alert and oriented times 3 with full capacity and stated a clear understanding of the treatment plan. - Time Spent with Patient Total time spent providing and/or coordinating discharge services: Greater than 30 minutes - Constitutional Vitals: Temp Pulse Resp BP Pulse Ox 98.2 F 70 18 145/87 97 07/11/17 06:51 07/11/17 06:51 07/11/17 06:51 07/11/17 06:51 07/11/17 06:51 General appearance: Present: mild distress, A&O X 3, morbidly obese, answers questions appropriately Exam: Gen.: Vitals noted. No acute distress. AAOx3 HEENT: oropharynx clear, Normocephalic, atraumatic Neck: Supple. No adenopathy. Cardiac: RRR, no murmur, +S1/S2 Pulmonary: CTA bilaterally, no wheezes, rales or rhonchi, equal chest expansion Abdomen: soft, nontender, Bowel sounds noted, no guarding Back: Nontender throughout. Neuro: A&Ox3, moves all extremities, no focal deficits Psych: Appropriate mood and behavior - VTE Documentation of Mechanical Device: Intermittent pneumatic compression device <Kash Clarke - Last Filed: 07/11/17 13:00> Date of Encounter: 07/11/17 Date of admission: 07/08/17 19:47 Primary care physician: Xander Thomas, Hospital course: Ms. Reese is a 52 year old female - Time Spent with Patient Total time spent providing and/or coordinating discharge services: - Constitutional Vitals: Temp Pulse Resp BP Pulse Ox 98.2 F 70 18 145/87 97 07/11/17 06:51 07/11/17 06:51 07/11/17 06:51 07/11/17 06:51 07/11/17 06:51 - Attending Attestation I examined this patient and my medical decision-making was reviewed with the Resident Physician. I agree with the documented findings, disposition and treatment plan as described except to the extent set forth below. Seen and evaluated at the bedside. 52-year-old female admitted and managed for sepsis secondary to complicated UTI with obstructive uropathy and mild hydronephrosis. She is postop day 2. No new complaints. CVA tenderness has improved. Other physical exam was unremarkable. Urine culture with marquez-sensitive E.coli Safe to discharge home on omnicef for a total of 10 days of therapy Follow up with and PCP Rest of details as in the resident physicians documentation.
[2017-07-11] MEDS: cefTRIAXone 1,000 MG in Water for inj. (sterile) 10 ML IVP SCH (08:49)
== END 2017-07-11 11:14 | disposition home or self-care (01) ==
LOC: 3ANU 16:21 → EMEROO 16:21 → SUATTDRO 19:47 → 3ANU 20:23
PROVIDERS: ADMIT Internal Medicine; ATTEND Internal Medicine

== ENCOUNTER 2019-03-23 19:09 | Observation (INO) ==
[2019-03-23] MEDS ORDERED: Ondansetron 4 MG/2 ML VIAL IVP STA ×2 (19:44→22:15)
[2019-03-23] MEDS ORDERED: Isovue-370 500 ML BOTTLE IVP ONE (19:44)
[2019-03-23 19:56] LABS: Basophils # 0.1 K/mcL (0.0-0.2); Basophils % 0.7 %; Eosinophils # 0.2 K/mcL (0.0-0.6); Eosinophils % 2.5 %; Hematocrit 39.6 % (35.3-44.9); Hemoglobin 13.3 g/dL (11.5-15.4); Immature Granulocytes % 0.3 % (0-4); Lymphocytes # 3.5 K/mcL (0.6-4.6); Lymphocytes % 37.7 %; Mean Corpuscular HGB Conc 33.6 g/dL (31.6-35.5); Mean Corpuscular Volume 89.2 fL (83.0-100.0); Mean Platelet Volume 9.7 fL (9.4-12.4); Monocytes # 0.6 K/mcL (0.0-1.3); Monocytes % 6.8 %; Neutrophils # 4.8 K/mcL (1.6-8.9); Platelet Count 438 K/mcL (140-400); Red Blood Count 4.44 M/mcL (3.82-4.97); Red Cell Distribution Width 13.2 % (11.5-14.5); White Blood Count 9.1 K/mcL (4.3-11.1)
[2019-03-23 20:13] LABS: BUN/Creatinine Ratio 17 (6-26); Blood Urea Nitrogen 14 mg/dL (6-20); Calcium 9.4 mg/dL (8.6-10.3); Carbon Dioxide 25 mEq/L (23-29); Chloride 107 mEq/L (98-107); Glucose 110 mg/dL (70-105); Osmolality,Calculated 291 (280-300); Potassium 3.8 mEq/L (3.5-5.1); Sodium 140 mEq/L (136-145); eGFR For African Americans > 60 (> 60); eGFR For Non-African Americans > 60 (> 60)
[2019-03-23] MEDS ORDERED: Piperacillin/Tazobactam 3.375 GM in Water for inj. (sterile) 20 ML IVP ONE (22:47)
[2019-03-23] MEDS ORDERED: Piperacillin/Tazobactam 3.375 GM in 0.9 % Sodium Chloride Mini Bag 100 ML IVPB ONE (22:57)
[2019-03-24] MEDS ORDERED: Naloxone 0.4 MG/ML INJ IVP PRN (02:20)
[2019-03-24 04:47] LABS: Hematocrit 34.5 % (35.3-44.9); Mean Corpuscular HGB Conc 33.6 g/dL (31.6-35.5); Mean Corpuscular Hemoglobin 30.2 pg (28.0-33.3); Mean Corpuscular Volume 89.8 fL (83.0-100.0); Mean Platelet Volume 9.4 fL (9.4-12.4); Platelet Count 374 K/mcL (140-400); Red Blood Count 3.84 M/mcL (3.82-4.97); Red Cell Distribution Width 13.3 % (11.5-14.5); White Blood Count 8.9 K/mcL (4.3-11.1)
[2019-03-24 04:48] LABS: Hemoglobin 11.6 g/dL (11.5-15.4)
[2019-03-24 05:06] LABS: BUN/Creatinine Ratio 16 (6-26); Blood Urea Nitrogen 12 mg/dL (6-20); Calcium 8.8 mg/dL (8.6-10.3); Carbon Dioxide 23 mEq/L (23-29); Chloride 108 mEq/L (98-107); Glucose 93 mg/dL (70-105); Osmolality,Calculated 289 (280-300); Potassium 3.7 mEq/L (3.5-5.1); Sodium 140 mEq/L (136-145); eGFR For African Americans > 60 (> 60); eGFR For Non-African Americans > 60 (> 60)
[2019-03-24] MEDS: Acyclovir 200 MG CAPSULE PO SCH ×3 (08:24→20:53)
[2019-03-24] MEDS: Piperacillin/Tazobactam 3.375 GM in 0.9 % Sodium Chloride Mini Bag 100 ML IVPB SCH ×2 (08:26→16:05)
[2019-03-24] MEDS ORDERED: Ondansetron ODT 4 MG TAB.RAPDIS SL PRN (10:24)
[2019-03-25] MEDS: Piperacillin/Tazobactam 3.375 GM in 0.9 % Sodium Chloride Mini Bag 100 ML IVPB SCH ×2 (00:05→08:18)
[2019-03-25 07:02] LABS: Hematocrit 34.8 % (35.3-44.9); Hemoglobin 11.6 g/dL (11.5-15.4); Mean Corpuscular HGB Conc 33.3 g/dL (31.6-35.5); Mean Corpuscular Hemoglobin 29.7 pg (28.0-33.3); Mean Corpuscular Volume 89.2 fL (83.0-100.0); Mean Platelet Volume 9.4 fL (9.4-12.4); Platelet Count 373 K/mcL (140-400); Red Cell Distribution Width 13.4 % (11.5-14.5); White Blood Count 6.8 K/mcL (4.3-11.1)
[2019-03-25 07:20] LABS: BUN/Creatinine Ratio 15 (6-26); Blood Urea Nitrogen 14 mg/dL (6-20); Calcium 8.8 mg/dL (8.6-10.3); Carbon Dioxide 26 mEq/L (23-29); Chloride 106 mEq/L (98-107); Glucose 102 mg/dL (70-105); Osmolality,Calculated 291 (280-300); Potassium 4.1 mEq/L (3.5-5.1); Sodium 140 mEq/L (136-145); eGFR For African Americans > 60 (> 60); eGFR For Non-African Americans > 60 (> 60)
[2019-03-25] MEDS: Acyclovir 200 MG CAPSULE PO SCH ×3 (08:17→20:30)
[2019-03-25] MEDS ORDERED: Sennosides/Docusate Sodium TABLET PO PRN (09:15)
[2019-03-25] MEDS ORDERED: Sennosides/Docusate Sodium TABLET PO ONE (09:16)
[2019-03-26 06:25] LABS: Hematocrit 33.8 % (35.3-44.9); Hemoglobin 11.1 g/dL (11.5-15.4); Mean Corpuscular HGB Conc 32.8 g/dL (31.6-35.5); Mean Corpuscular Hemoglobin 29.8 pg (28.0-33.3); Mean Corpuscular Volume 90.9 fL (83.0-100.0); Mean Platelet Volume 8.9 fL (9.4-12.4); Platelet Count 353 K/mcL (140-400); Red Blood Count 3.72 M/mcL (3.82-4.97); Red Cell Distribution Width 13.2 % (11.5-14.5); White Blood Count 7.4 K/mcL (4.3-11.1)
[2019-03-26 06:35] VITALS: BP 110/72
[2019-03-26 06:46] LABS: BUN/Creatinine Ratio 17 (6-26); Blood Urea Nitrogen 17 mg/dL (6-20); Calcium 8.8 mg/dL (8.6-10.3); Carbon Dioxide 27 mEq/L (23-29); Chloride 106 mEq/L (98-107); Glucose 99 mg/dL (70-105); Osmolality,Calculated 294 (280-300); Potassium 3.9 mEq/L (3.5-5.1); Sodium 141 mEq/L (136-145); eGFR For African Americans > 60 (> 60); eGFR For Non-African Americans 56 (> 60)
[2019-03-26] MEDS ORDERED: Aminoglycoside Consult 1 EACH MC ONE (10:14)
== END 2019-03-26 10:15 | disposition home or self-care (01) ==
LOC: 3BNU 19:09 → EMEROOARM 19:09 → 3BNU 03-24
PROVIDERS: ADMIT Internal Medicine; ATTEND Internal Medicine